=== PATIENT | female | born 1960 | race Caucasian/White ===

== ENCOUNTER → 2017-07-11 13:33 | Outpatient (CLI) | payer MEDICAID ==
[2013-03-26 15:48] VITALS: BMI 23.6
[~2017-07-11 13:33] MED LIST: AMBIEN10 MG PO; DYAZIDE 37.5/251 CAP PO; LEVOTHROID75 MCG PO; LISINOPRIL10 MG PO; MOBIC7.5 MG PO; PRAVACHOL40 MG OR; PRILOSEC20 MG PO; RETIN A TP; TRIDERM90 GM TP; XANAX0.5 MG PO
== END | disposition home or self-care (01) ==
LOC: D.US 13:30
DX: R09.89 Other specified symptoms and signs involving the circulatory and respiratory systems (principal)

== ENCOUNTER → 2017-07-27 14:38 | Outpatient (CLI) | payer MEDICAID ==
[2013-03-26 15:48] VITALS: BMI 23.6
== END | disposition home or self-care (01) ==
LOC: D.CT 14:38
DX: K86.2 Cyst of pancreas (principal); R91.1 Solitary pulmonary nodule

== ENCOUNTER → 2017-08-12 08:33 | Outpatient (CLI) | payer MEDICAID ==
[2013-03-26 15:48] VITALS: BMI 23.6
== END ==
LOC: D.MRI 08-10 11:30
DX: R93.8 Abnormal findings on diagnostic imaging of other specified body structures (principal)

== ENCOUNTER → 2017-08-18 11:23 | Outpatient (CLI) | payer MEDICAID ==
[2013-03-26 15:48] VITALS: BMI 23.6
[2017-08-18 12:27] LABS: ALBUMIN 4.1 g/dL (3.4-5.0); BILIRUBIN - DIRECT 0.07 mg/dL (0.00-0.30); BILIRUBIN - INDIRECT 0.29 mg/dL (0.00-1.00); BILIRUBIN - TOTAL 0.36 mg/dL (0.2-1.3); PROTEIN - SERUM 7.9 g/dL (6.4-8.2)
== END | disposition home or self-care (01) ==
LOC: D.LAB 11:23
PROVIDERS: Internal Medicine Gastroenterology
DX: R93.3 Abnormal findings on diagnostic imaging of other parts of digestive tract (principal)

== ENCOUNTER → 2018-01-05 10:33 | Outpatient (CLI) | payer MEDICAID ==
[2013-03-26 15:48] VITALS: BMI 23.6
== END | disposition home or self-care (01) ==
LOC: D.CT 10:33
DX: R31.9 Hematuria, unspecified (principal)